=== PATIENT | male | born 1995 | race Caucasian/White ===

== ENCOUNTER 2017-05-31 03:12 | Emergency (ER) | payer BC ==
[~2017-05-31] VITALS: Ht 185.4 cm; Wt 67.2 kg
[2017-05-31 03:15] VITALS: TEMP 36.7; Ht 185.4 cm; Wt 67.2 kg
[2017-05-31] MEDS ORDERED: LIDO/EPINEPHRINE/SOD BICARB 20 ML VIAL INFIL ONE (03:41)
[2017-05-31] MEDS ORDERED: XYLOCAINE 1%/SOD BICARB 20 ML VIAL INFIL ONE (04:00)
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
[2017-05-31] MEDS ORDERED: IBUP-1459 PO (04:13)
[2017-05-31 04:14] VITALS: BP 148/92; PULSE 98; O2SAT 97
== END 2017-05-31 04:17 | disposition home or self-care (01) ==
LOC: EDBD 03:12 → C.EDA 03:13
DX: S71.012A Laceration without foreign body, left hip, initial encounter (principal); Z72.89 Other problems related to lifestyle; X58.XXXA Exposure to other specified factors, initial encounter